=== PATIENT | male | born 1955 | race Caucasian/White ===

== ENCOUNTER 2020-03-24 14:25 | Outpatient (CLI) | payer BC, SELFPAY ==
--- NOTE | 2020-03-28 15:48 | WPDHOLTEREM ---
Holter/Event Monitor Holter/Event Monitor Date of procedure: 03/24/20 Procedure Type: 24 hour holter monitor Indications: Palpitations Conclusion: 1. 24 hour holter monitor on 03/24/20. 2. Underlying rhythm is sinus rhythm. HR range 46-129 bpm; average HR 68 bpm. 3. There are 146 premature supraventricular complexes and 89 supraventricular couplets. No supraventricular tachycardia. 4. There are 8 premature ventricular complexes. No ventricular tachycardia. 5. No sinoatrial or atrioventricular blocks. No significant pauses greater than 2 seconds. 6. Patient reports symptoms of dizziness which demonstrates sinus rhythm at 63 bpm.
== END 2020-03-24 14:26 | disposition home or self-care (01) ==
PROVIDERS: PCP Internal Medicine; Visit Provider Internal Medicine
DX: R00.2 Palpitations (principal)
CPT/HCPCS: 93225; 93226

== ENCOUNTER 2020-12-15 13:45 | Outpatient (CLI) | payer BC, SELFPAY | END 2020-12-15 13:46 | disposition home or self-care (01) | LOC: ANHCOVIDVC 13:45 | PROVIDERS: PCP Internal Medicine | DX: Z23 Encounter for immunization (principal) | CPT/HCPCS: 0001A; 91300 ==

== ENCOUNTER 2021-01-05 13:44 | Outpatient (CLI) | payer OTHER, SELFPAY | END 2021-01-05 13:45 | disposition home or self-care (01) | LOC: ANHCOVIDVC 13:44 | PROVIDERS: PCP Internal Medicine | DX: Z23 Encounter for immunization (principal) | CPT/HCPCS: 0002A; 91300 ==

== ENCOUNTER 2021-08-09 01:54 | Day surgery (SDC) | payer MEDICARE, SELFPAY ==
[2021-07-24 14:48] VITALS: BMI 24.7
--- NOTE | 2021-08-08 13:14 | PM.HPGS ---
History of Present Illness History of Present Illness Consent: Risks, benefits, and alternatives have been discussed and questions answered. Patient agrees to proceed with procedure. Chief complaint: hx of colon polyps Narrative: Ronny Amin is a 66 year old male with history of polyps here for colon cancer screening Review of Systems Review of Systems: All systems reviewed & are unremarkable except as noted in HPI and below PMFSH Past Medical History Medical History History of colon polyps Hypercholesterolemia Osteoarthritis Family History Family History Mother Family history of malignant neoplasm, Onset Age: 62 Family history of diabetes mellitus in first degree relative Patient's mother is , Onset Age: 62 Diabetes mellitus Social History Social History Smoking packs per day: 0.5 Smoking cigarettes per day: 10.0 Years smoked: 40 Smoking pack-years: 20.00 Smoking status: Current every day smoker Tobacco type: cigarettes Alcohol intake: current Drinks per week: 5 Alcohol use details: social Substance use: never Living arrangements: with family Spiritual care concerns: No Meds Home Medications and Allergies Home Medications Medication Instructions Recorded Confirmed Type atorvastatin 20 mg tablet 20 mg PO DAILY #90 tablet 03/22/21 08/09/21 Rx esomeprazole magnesium 40 mg 40 mg PO DAILY #90 cap 03/22/21 08/09/21 Rx capsule,delayed release Allergies Allergy/AdvReac Type Severity Reaction Status Date / Time lovastatin Allergy Unknown joint pain Verified 08/09/21 06:23 Exam Resp: Auscultation: clear to auscultation bilaterally Cardio: Rate: regular rate Rhythm: regular rhythm GI: GI Palp: Yes Soft to palpation and No Tenderness to palpation present (GI) Assessment and Plan Assessment and plan (1) Colon cancer screening: Code(s): Z12.11 - Encounter for screening for malignant neoplasm of colon Status: Acute Assessment and Plan: Colonoscopy with possible biopsy or polypectomy or cautery or injection of substances.
[2021-08-09 06:24] VITALS: BMI 24.2
[2021-08-09 06:27] VITALS: BP 107/69; PULSE 66; RESP 17; TEMP 35.8; O2SAT 99
[2021-08-09] MEDS: LACTATED RINGERS 1,000 ML 150 ML IV CONT (06:30)
--- NOTE | 2021-08-09 07:00 | P.PNAN_ITS ---
Anes - Initial Pre Proc Eval Procedure: Operation Date: 08/09/21 07:30 Proposed Procedures p Screening Colonoscopy - Richard Donato MD Date/Time: 08/09/21 07:00 Surgeon: Richard Donato MD Pre Op Diagnosis: hx of colon polyps Patient Data Age: 66 Gender: M Height: 1.83 m Weight: 81.1 kg Last Vital Signs Temp 35.8 C L 08/09/21 06:27 Pulse 66 08/09/21 06:27 Resp 17 08/09/21 06:27 BP 107/69 08/09/21 06:27 Pulse Ox 99 08/09/21 06:27 Allergies Allergy/AdvReac Type Severity Reaction Status Date / Time lovastatin Allergy Unknown joint pain Verified 08/09/21 06:23 Home Medications Medication Instructions Recorded Confirmed Type atorvastatin 20 mg tablet 20 mg PO DAILY #90 tablet 03/22/21 08/09/21 Rx esomeprazole magnesium 40 mg 40 mg PO DAILY #90 cap 03/22/21 08/09/21 Rx capsule,delayed release Patient hx anesthesia problems: none Family hx anesthesia problems: none Results Review: All pre-operative results and documents have been reviewed as part of the pre-operative evaluation. [facility] Past Medical History Medical History (Updated 08/09/21 @ 07:01 by Dell Serna MD) History of colon polyps Hypercholesterolemia Osteoarthritis Family History Family History (Updated 02/17/19 @ 15:08 by DOCTOR UNKNOWN) Mother Family history of malignant neoplasm, Onset Age: 62 Family history of diabetes mellitus in first degree relative Patient's mother is , Onset Age: 62 Diabetes mellitus Social History Social History (Updated 03/22/21 @ 09:24 by Zee Mckeon MA) Smoking packs per day: 0.5 Smoking cigarettes per day: 10.0 Years smoked: 40 Smoking pack-years: 20.00 Smoking status: Current every day smoker Tobacco type: cigarettes Alcohol intake: current Drinks per week: 5 Alcohol use details: social Substance use: never Living arrangements: with family Spiritual care concerns: No Anes - Eval Final PreProcedure Day of Procedure 08/09/21 07:00 Patient weight: overweight Heart: regular rate and rhythm Lungs: clear to auscultation and normal air movement Airway: Mallampati scale class II Neurological: alert and oriented Last oral intake: >/= 8 hours ASA classification: II Emergent: no Anesthetic plan: proceed Anesthesia type and monitoring: general GIVS Results Review: All pre-operative results and documents have been reviewed as part of the pre-operative evaluation. Informed Consent: The patient's anesthetic plan and its attendant risks and benefits were discussed with the patient/family/POA. Questions were solicited and answers provided to the satisfaction of the patient/family/POA.
[2021-08-09] MEDS: SIMETHICONE ORAL SUSPENSION 20 MG/0.3 ML 30 ML BOTTLE 0.6 ML IRRIGATION (07:34)
[2021-08-09 07:52] VITALS: BP 116/75; PULSE 72; RESP 13; O2SAT 95
[2021-08-09 08:02] VITALS: BP 127/91; PULSE 67; RESP 18; O2SAT 98
[2021-08-09 08:12] VITALS: BP 154/90; PULSE 54; RESP 13; O2SAT 99
== END 2021-08-09 08:23 | disposition home or self-care (01) ==
PROVIDERS: PCP Internal Medicine; Visit Provider Internal Medicine Gastroenterology
PROC: 0DJD8ZZ Inspection of Lower Intestinal Tract, Via Natural or Artificial Opening Endoscopic (ICD-10-PCS; CPT 45378; principal; 2021-08-09 07:30)
DX: Z12.11 Encounter for screening for malignant neoplasm of colon (principal); K64.8 Other hemorrhoids; D12.2 Benign neoplasm of ascending colon; K62.1 Rectal polyp; E78.00 Pure hypercholesterolemia, unspecified; F17.210 Nicotine dependence, cigarettes, uncomplicated
CPT/HCPCS: 45380; 45381; 45385; 88305; J2704; J7120